=== PATIENT | male | born 1990 | race Caucasian/White ===

== ENCOUNTER 2016-04-27 15:08 | Emergency (ER) | payer OTHER ==
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
[2016-04-27 17:42] VITALS: BP 129/76; PULSE 78; RESP 16; TEMP 98.3
== END 2016-04-27 17:42 | disposition home or self-care (01) ==
LOC: EC 15:08
DX: S06.0X0A Concussion without loss of consciousness, initial encounter (principal); J32.0 Chronic maxillary sinusitis; V44.5XXA Car driver injured in collision with heavy transport vehicle or bus in traffic accident, initial encounter; Y92.410 Unspecified street and highway as the place of occurrence of the external cause; Z88.0 Allergy status to penicillin
CPT/HCPCS: 70450; 72125; 99284

== ENCOUNTER 2020-07-21 09:20 | Day surgery (SDC) | payer OTHER ==
[2020-07-17 11:53] VITALS: BMI 29.2
[~2020-07-21 09:20] MED LIST: LACTATED RINGERS 1,000 ML IV SCH; LIDOCAINE 1% (10MG/ML) FOR IV START INTRADERMA PRN
[2020-07-21 09:39] VITALS: RESP 16; TEMP 98.1
[2020-07-21] MEDS ORDERED: MIDAZOLAM 2 MG/2 ML VIAL ONE (10:22)
[2020-07-21] MEDS ORDERED: LIDOCAINE 1% INJ 10MG/ML (20 ML MDV) ONE (10:22)
[2020-07-21] MEDS ORDERED: fentaNYL (PF) 50 MCG/ML 2 ML AMP ONE (10:22)
[2020-07-21] MEDS ORDERED: PROPOFOL 10 MG/ML 20 ML VIAL IV ONE (10:22)
--- NOTE | 2020-07-21 10:40 | P.PCN ---
Date of Procedure: 07/21/20 Procedure(s) Performed: BRIEF HISTORY: Patient is a 29-year-old pleasant male scheduled for an elective colonoscopy as a part of evaluation of chronic diarrhea and rectal pain for the last 1 month duration. PROCEDURE PERFORMED: Colonoscopy with snare polypectomy and biopsy. PREOPERATIVE DIAGNOSIS: Chronic diarrhea or rectal bleeding of 1 month duration. IV sedation per Anesthesia. PROCEDURE: After informed consent was obtained, the patient, was brought into the endoscopy unit. IV sedation was administered by Anesthesia under continuous monitoring. Digital rectal examination was normal. Initially the Olympus CF-160 flexible video colonoscope was then inserted in the rectum, gradually advanced into the cecum without any difficulty. Careful examination was performed as the scope was gradually being withdrawn. Ileocecal valve and the appendiceal orifice were visualized and appeared normal. Prep was excellent. Mucosa of the cecum, ascending colon, appeared normal. He'll be transverse colon there was a 5 mm and 6 mm sessile polyps were by snare polypectomy. Rest of the transverse colon, descending colon, sigmoid colon, and rectum appeared normal. Retroflexion was performed in the rectum and no lesions were seen. The patient tolerated the procedure well. IMPRESSION: 5 mm and 6 mm transverse colon polyp status post polypectomy Rest of the colon appeared normal RECOMMENDATIONS: Findings of this examination were discussed with the patient as well as his family. He was advised to follow with the biopsy results and he'll be seen in office in a week..
[2020-07-21 11:32] VITALS: BP 115/67; PULSE 78
[2020-07-21 11:34] LABS: Bilirubin,Unconjugated 0.4 mg/dL (0.0-1.1); Total Bilirubin 0.4 mg/dL (0.2-1.3); Total Protein 6.7 g/dL (6.3-8.2)
== END 2020-07-21 11:51 | disposition home or self-care (01) ==
LOC: ORWHC2ENDO 09:20
PROVIDERS: ATTEND Internal Medicine Gastroenterology
DX: D12.3 Benign neoplasm of transverse colon (principal); K63.5 Polyp of colon; Z79.899 Other long term (current) drug therapy; F17.210 Nicotine dependence, cigarettes, uncomplicated; K21.9 Gastro-esophageal reflux disease without esophagitis; Z88.0 Allergy status to penicillin
CPT/HCPCS: 88305; 80076; 45385; J2250; J2001; J3010; J2704; 45380

== ENCOUNTER → 2020-07-23 | Outpatient (CLI) | payer OTHER ==
--- NOTE | 2020-07-23 09:28 | US ---
EXAMINATION TYPE: US liver DATE OF EXAM: 07/23/2020 COMPARISON: NONE CLINICAL HISTORY: R74.01 Elevated Liver enzymes. abnormal labs. No pain. EXAM MEASUREMENTS: Liver Length: 16.1 cm Gallbladder Wall: 0.1 cm CBD: 0.3 cm Right Kidney: 11.1 x 5.7 x 4.1 cm Pancreas: Tail obscured by overlying bowel gas. Echogenic in appearance. Liver: wnl Gallbladder: wnl Evidence for sonographic Hinson's sign: neg CBD: wnl Right Kidney: No hydronephrosis or masses seen IMPRESSION: No distinct abnormality seen.
== END | disposition home or self-care (01) ==
LOC: RADUSWWP 08:28
PROVIDERS: ATTEND Family Medicine
DX: R74.01 Elevation of levels of liver transaminase levels (principal)
CPT/HCPCS: 76705

== ENCOUNTER 2021-07-24 08:53 | Emergency (ER) | payer OTHER ==
[2021-07-24 08:57] VITALS: BP 139/90; PULSE 91; RESP 20; TEMP 98.3
[2021-07-24] MEDS ORDERED: IBUPROFEN 800 MG TAB PO STA (09:04)
--- NOTE | 2021-07-24 09:09 | ED ---
General Adult HPI - General Chief complaint: ENT Stated complaint: throat swelling Time Seen by Provider: 07/24/21 09:00 Source: patient, RN notes reviewed, old records reviewed Mode of arrival: ambulatory Limitations: no limitations - History of Present Illness Initial comments: Well-appearing 30-year-old male, alert and oriented x4 presents with complaints of sore throat that started last night. States he feels like there was something stuck in the back of his throat like mucus. He is concerned for tonsillitis. He denies any foreign body sensation or choking episodes. Patient denies any fevers, no nausea vomiting or diarrhea. States that he is a smoker and also smokes marijuana occasionally. -: hour(s) Location: mouth (throat) Radiation: non-radiation Severity scale (1-10): 3 Quality: other (sore) Improves with: none Worsens with: none Associated Symptoms: denies other symptoms - Related Data Home Medications Medication Instructions Recorded Confirmed Omeprazole 20 mg PO DAILY 07/24/21 07/24/21 lamoTRIgine [LaMICtal] 100 mg PO HS 07/24/21 07/24/21 Allergies Allergy/AdvReac Type Severity Reaction Status Date / Time Penicillins Allergy Rash/Hives Verified 07/24/21 10:26 Review of Systems ROS Statement: Those systems with pertinent positive or pertinent negative responses have been documented in the HPI. ROS Other: All systems not noted in ROS Statement are negative. Past Medical History Past Medical History: GERD/Reflux Additional Past Medical History / Comment(s): HEMORRHOIDS History of Any Multi-Drug Resistant Organisms: None Reported Past Surgical History: No Surgical Hx Reported Additional Past Surgical History / Comment(s): ORAL SX X 2 WITH ANESTHESIA Past Anesthesia/Blood Transfusion Reactions: No Reported Reaction Past Psychological History: Bipolar Smoking Status: Current every day smoker Past Alcohol Use History: Occasional Past Drug Use History: Marijuana - Past Family History Mother Family Medical History: No Reported History General Exam Limitations: no limitations General appearance: alert, in no apparent distress Head exam: Present: atraumatic ENT exam: Present: normal oropharynx, mucous membranes moist Expanded Throat exam: normal inspection, tonsillomegaly. negative: tonsillar erythema, tonsillar exudate, R peritonsillar mass, L peritonsillar mass Neck exam: Present: normal inspection, full ROM. Absent: tenderness, meningismus, lymphadenopathy Respiratory exam: Present: normal lung sounds bilaterally. Absent: respiratory distress, accessory muscle use, decreased breath sounds Cardiovascular Exam: Present: regular rate GI/Abdominal exam: Present: soft. Absent: distended, tenderness Neurological exam: Present: alert, oriented X3, normal gait Psychiatric exam: Present: normal affect, normal mood Skin exam: Present: warm, dry, normal color. Absent: rash, cyanosis, diaphoretic Course Vital Signs 07/24/21 08:54 Temperature 98.3 F Pulse Rate 91 Respiratory 20 Rate Blood Pressure 139/90 O2 Sat by Pulse 99 Oximetry Medical Decision Making - Medical Decision Making Rapid strep is negative. There is no evidence of peritonsillar abscess or exudate. No lymphadenopathy . Patient has been afebrile. Abdomen is soft and nontender. Patient was instructed return if any new or concerning symptoms. Increase his fluid intake and add humidified air to his bedroom while sleeping at night. Patient is agreeable to this plan of care. - Lab Data Lab Results 07/24/21 Range/Units 09:18 Group A Strep Rapid Negative (Negative) Disposition Clinical Impression: Sore throat Disposition: HOME SELF-CARE Condition: Good Instructions (If sedation given, give patient instructions): Pharyngitis (ED) Additional Instructions: Increase your fluid intake. Add a humidifier to your room at night while sleeping to moisten air. Return to the emergency room with any new or concerning symptoms including fever or difficulty swallowing. Follow-up with your primary care doctor as needed. Is patient prescribed a controlled substance at d/c from ED?: No Referrals: Modesto Chisholm MD [Primary Care Provider] - 1-2 days Time of Disposition: 10:47
== END 2021-07-24 10:54 | disposition home or self-care (01) ==
LOC: EC 08:53
DX: J02.9 Acute pharyngitis, unspecified (principal); K21.9 Gastro-esophageal reflux disease without esophagitis; F31.9 Bipolar disorder, unspecified; F17.200 Nicotine dependence, unspecified, uncomplicated; F12.90 Cannabis use, unspecified, uncomplicated; Z88.0 Allergy status to penicillin
CPT/HCPCS: 87081; 87430; 99283

== ENCOUNTER 2022-07-18 19:12 | Emergency (ER) | payer OTHER ==
[2022-07-18 19:21] VITALS: BP 147/88; PULSE 83; RESP 16; TEMP 97.8
--- NOTE | 2022-07-18 19:35 | ED ---
Psych HPI - General Source: patient, RN notes reviewed Mode of arrival: ambulatory - History of Present Illness MD Complaint: feels depressed <Evans Corea - Last Filed: 07/18/22 20:53> <Richard Owen - Last Filed: 07/19/22 01:21> - General Chief Complaint: Psychiatric Symptoms Stated Complaint: MENTAL HEALTH Time Seen by Provider: 07/18/22 19:22 - History of Present Illness Initial Comments: 31-year-old male with a history of bipolar 2 disorder as well as possible borderline personality disorder who resents today complaining of one week of feeling desponded depressed having impulse control feeling angry L of time crying all day decrease oral intake. He denies any suicidal thoughts or idea tion but he states he just is get some help he states he was here 3 days ago but was too busy and he did not want to wait in the waiting room. He is getting worse not better in that time. He states he been missing work he does admit to smoking marijuana and cigarettes no alcohol. No other drugs reported. Patient states that he saw his primary doctor this past week and was ordered some medication but apparently his insurance would not cover it. Patient does not identify any particular triggers to this. No other current complaints or modifying factors (Evans Corea) - Related Data Home Medications Medication Instructions Recorded Confirmed No Known Home Medications 07/18/22 07/18/22 Allergies Allergy/AdvReac Type Severity Reaction Status Date / Time Penicillins Allergy Rash/Hives Verified 07/18/22 20:01 Review of Systems ROS Other: All systems not noted in ROS Statement are negative. <Evans Corea - Last Filed: 07/18/22 20:53> ROS Other: All systems not noted in ROS Statement are negative. <Richard Owen - Last Filed: 07/19/22 01:21> ROS Statement: Those systems with pertinent positive or pertinent negative responses have been documented in the HPI. Past Medical History Past Medical History: Asthma, GERD/Reflux Additional Past Medical History / Comment(s): HEMORRHOIDS History of Any Multi-Drug Resistant Organisms: None Reported Past Surgical History: No Surgical Hx Reported Additional Past Surgical History / Comment(s): ORAL SX X 2 WITH ANESTHESIA Past Anesthesia/Blood Transfusion Reactions: No Reported Reaction Past Psychological History: Anxiety, Bipolar, Panic Disorder Smoking Status: Current every day smoker Past Alcohol Use History: Occasional Past Drug Use History: Marijuana - Past Family History Mother Family Medical History: No Reported History <Evans Corea - Last Filed: 07/18/22 20:53> General Exam Limitations: no limitations General appearance: alert, anxious Head exam: Present: atraumatic, normocephalic, normal inspection Eye exam: Present: normal appearance, PERRL, EOMI. Absent: scleral icterus, conjunctival injection, periorbital swelling ENT exam: Present: normal exam, mucous membranes moist Neck exam: Present: normal inspection. Absent: tenderness, meningismus, lymphadenopathy Respiratory exam: Present: normal lung sounds bilaterally. Absent: respiratory distress, wheezes, rales, rhonchi, stridor Cardiovascular Exam: Present: regular rate, normal rhythm, normal heart sounds. Absent: systolic murmur, diastolic murmur, rubs, gallop, clicks GI/Abdominal exam: Present: soft, normal bowel sounds. Absent: distended, tenderness, guarding, rebound, rigid Extremities exam: Present: normal inspection, full ROM, normal capillary refill. Absent: tenderness, pedal edema, joint swelling, calf tenderness Back exam: Present: normal inspection Neurological exam: Present: alert, oriented X3, CN II-XII intact Psychiatric exam: Present: depressed, flat affect Skin exam: Present: warm, dry, intact, normal color. Absent: rash <Evans Corea - Last Filed: 07/18/22 20:53> - General Exam Comments Initial Comments: This is a well-developed well-nourished awake alert oriented 4 male (Evans Corea) Course <Evans Corea - Last Filed: 07/18/22 20:53> Vital Signs 07/18/22 19:18 Temperature 97.8 F Pulse Rate 83 Respiratory 16 Rate Blood Pressure 147/88 O2 Sat by Pulse 98 Oximetry - Reevaluation(s) Reevaluation #1: 07/18/22 20:53 The patient's care will be endorsed to Dr. Bin castellon Pending EPS evaluation at this time. (Evans Corea) Medical Decision Making <Richard Owen - Last Filed: 07/19/22 01:21> - Medical Decision Making The patient was signed out to me from Dr. Corea pending EPS evaluation. Was pt. sent in by a medical professional or institution (Dr., PA, STATION TENDER, urgent care, hospital, or long term...) When possible be specific @ -No Did you speak to anyone other than the patient for history (EMS, parent, family, police, friend...)? What history was obtained from this source @ -No Did you review nursing and triage notes (agree or disagree)? Why? @ -I reviewed and agree with nursing and triage notes Were old charts reviewed (outside hosp., previous admission, EMS record, old EKG, old radiological studies, urgent care reports/EKG's, long term records)? Report findings @ -No old charts were reviewed Differential Diagnosis (chest pain, altered mental status, abdominal pain women, abdominal pain men, vaginal bleeding, weakness, fever, dyspnea, syncope, headache, dizziness, GI bleed, back pain, seizure, CVA, palpatations, mental health)? @ -Major depressive disorder, anxiety EKG interpreted by me (3pts min.). @ -None X-rays interpreted by me (1pt min.). @ -None done CT interpreted by me (1pt min.). @ -None done U/S interpreted by me (1pt. min.). @ -None done What testing was considered but not performed or refused? (CT, X-rays, U/S, labs)? Why? @ -None What meds were considered but not given or refused? Why? @ -None Did you discuss the management of the patient with other professionals (professionals i.e. , PA, STATION TENDER, lab, RT, psych nurse, hospice social worker, senior user experience architect, teacher, gift officer, case liner)? Give summary @ -Yes, EPS nurse who stated the patient be discharged home with resources. Was smoking cessation discussed for >3mins.? @ -No Was critical care preformed (if so, how long)? @ -No Were there social determinants of health that impacted care today? How? (Homelessness, low income, unemployed, alcoholism, drug addiction, transportation, low edu. Level, literacy, decrease access to med. care, alf, rehab)? @ -No Was there de-escalation of care discussed even if they declined (Discuss DNR or withdrawal of care, Hospice)? DNR status @ -No What co-morbidities impacted this encounter? (DM, HTN, Smoking, COPD, CAD, Cancer, CVA, ARF, Chemo, Hep., AIDS, mental health diagnosis, sleep apnea, morbid obesity)? @ -Depression, bipolar disorder Was patient admitted / discharged? Hospital course, mention meds given and route, prescriptions, significant lab abnormalities, going to OR and other pertinent info. @ -The patient was seen initially by Dr. Corea. Please see his HPI for full details. The patient was signed out to me pending EPS evaluation. The patient was seen and evaluated by EPS and stated the patient could be discharged home with a likely diagnosis of depression. There was some issues at home therefore this is likely exacerbated his symptoms. The patient was given resources by EPS and was stable for discharge home. The patient denied any suicidal or homicidal ideation. The patient was agreeable to this plan and was discharged home in stable condition. Undiagnosed new problem with uncertain prognosis? @ -No Drug Therapy requiring intensive monitoring for toxicity (Heparin, Nitro, Insulin, Cardizem)? @ -No Were any procedures done? @ -No Diagnosis/symptom? @ -Depression, NOS Acute, or Chronic, or Acute on Chronic? @ -Chronic Uncomplicated (without systemic symptoms) or Complicated (systemic symptoms)? @ -Uncomplicated Side effects of treatment? @ -No Exacerbation, Progression, or Severe Exacerbation? @ -No Poses a threat to life or bodily function? How? (Chest pain, [place], [place], pneumonia, PE, COPD, DKA, ARF, appy, cholecystitis, CVA, Diverticulitis, Homicidal, Suicidal, threat to staff... and all critical care pts) @ -No (Richard Owen) - Lab Data Lab Results 07/18/22 Range/Units 21:15 Urine Opiates Screen Not Detected (NotDetected) Ur Oxycodone Screen Not Detected (NotDetected) Urine Methadone Screen Not Detected (NotDetected) Ur Propoxyphene Screen Not Detected (NotDetected) Ur Barbiturates Screen Not Detected (NotDetected) U Tricyclic Antidepress Not Detected (NotDetected) Ur Phencyclidine Scrn Not Detected (NotDetected) Ur Amphetamines Screen Not Detected (NotDetected) U Methamphetamines Scrn Not Detected (NotDetected) U Benzodiazepines Scrn Not Detected (NotDetected) Urine Cocaine Screen Not Detected (NotDetected) U Marijuana (THC) Screen Detected H (NotDetected) Disposition <Evans Corea - Last Filed: 07/18/22 20:53> Is patient prescribed a controlled substance at d/c from ED?: No Time of Disposition: 01:00 <Richard Owen - Last Filed: 07/19/22 01:21> Clinical Impression: Depression Disposition: HOME SELF-CARE Condition: Stable Instructions (If sedation given, give patient instructions): Depression (ED) Referrals: Modesto Chisholm MD [Primary Care Provider] - 1-2 days
[2022-07-18 21:44] LABS: Amphetamine Screen,Urine Not Detected (NotDetected); Barbiturate Screen,Urine Not Detected (NotDetected); Benzodiazepines Screen,Urine Not Detected (NotDetected); Cocaine Screen,Urine Not Detected (NotDetected); Methadone Screen, Urine Not Detected (NotDetected); Opiate Screen,Urine Not Detected (NotDetected); Oxycodone Screen, Urine Not Detected (NotDetected); Phencyclidine Screen,Urine Not Detected (NotDetected); Tricyclic Antidepressant,Urine Not Detected (NotDetected); Urn Cannabinoid Scrn Detected (NotDetected)
== END 2022-07-19 01:43 | disposition home or self-care (01) ==
LOC: EC 19:12
DX: F32.A Depression, unspecified (principal); J45.909 Unspecified asthma, uncomplicated; F41.9 Anxiety disorder, unspecified; F17.200 Nicotine dependence, unspecified, uncomplicated; F12.90 Cannabis use, unspecified, uncomplicated; Z88.0 Allergy status to penicillin
CPT/HCPCS: 80306; 82075; 99285